=== PATIENT | male | born 1955 | race Two or more races ===

== ENCOUNTER 2022-09-24 10:26 | Outpatient (CLI) | payer OTHER | END 2022-09-24 10:33 | disposition home or self-care (01) | LOC: SONOGRAMA 10:26 | PROVIDERS: ATTEND Internal Medicine | DX: N50.819 Testicular pain, unspecified (principal) ==

== ENCOUNTER 2024-12-03 11:29 | Outpatient (CLI) | payer OTHER | END 2024-12-03 11:33 | disposition home or self-care (01) | LOC: SONOGRAMA 11:29 | DX: N40.1 Benign prostatic hyperplasia with lower urinary tract symptoms (principal) ==